=== PATIENT | female | born 1990 | race Caucasian/White ===

== ENCOUNTER 2019-02-21 15:00 | Outpatient (RCR) | payer OTHER, SELFPAY ==
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
--- NOTE | 2019-06-29 11:24 | HP.OT.NRP ---
HP - Discharge Summary - Patient Information MARQUISE ALBA was seen in my office for initial evaluation on 01/19/19. The following Plan of Care was established for this patient: Initial Frequency: 2-3x /Week Initial Duration: 4 Weeks Plan: cont with left shoulder end range of motion. cont with pain free right wrist PRE - Anticipated Interventions Anticipated Interventions: A/AAROM/PROM, Strengthening, Triggerpoint Release, Joint Protection/Energy Conservation, Ergonomic Education This patient was last seen in our office 02/21/19. Pertinent comments regarding their Occupational therapy will appear below: pt see for 8 OT visits- pt was progressing well and returning to her daily occupations- pt was last seen on 02/21/19 and has not schedule any further apts. due to time lapse in care pt d/c. At this point I will be discontinuing this patient from occupational therapy. I would be happy to see this patient again in the future if found appropriate by the physician. Thank you! Allyson Lombardo, OTR/L, CHT
== END 2019-02-21 19:00 | disposition home or self-care (01) ==
LOC: OT 15:00
PROVIDERS: Referring Provider Orthopaedic Surgery; Visit Provider Orthopaedic Surgery
DX: S40.012D Contusion of left shoulder, subsequent encounter (principal); S63.681D Other sprain of right thumb, subsequent encounter
CPT/HCPCS: 97035; 97110; 97166; 97530

== ENCOUNTER → 2019-04-04 17:37 | Outpatient (CLI) | payer OTHER, SELFPAY ==
[2019-04-10 08:49] LABS: HPV Reflexed? NOT INDICATED
== END ==
PROVIDERS: Referring Provider Obstetrics & Gynecology; Visit Provider Obstetrics & Gynecology
DX: Z12.4 Encounter for screening for malignant neoplasm of cervix (principal)
CPT/HCPCS: 87624; 88175; G0145

== ENCOUNTER 2021-11-03 16:56 | Outpatient (CLI) | payer OTHER, MEDICAID, SELFPAY ==
[2021-11-03 19:28] LABS: Estradiol 37.7 pg/mL; Prolactin 19.8 ng/mL; T4 Free Direct 1.13 ng/dL (0.76-1.46); Thyroid Stim Hormone (TSH) 3.46 uIU/mL (0.358-3.74)
[2021-11-10 13:19] LABS: HPV APTIMA, High Risk Negative (Negative)
== END 2021-11-03 23:59 | disposition home or self-care (01) ==
LOC: WOBLAB 16:58
PROVIDERS: Visit Provider Obstetrics & Gynecology
DX: Z12.4 Encounter for screening for malignant neoplasm of cervix (principal); R68.82 Decreased libido; E28.9 Ovarian dysfunction, unspecified
CPT/HCPCS: 36415; 82533; 82627; 82670; 84146; 84270; 84403; 84439; 84443; 87624; 88175; 82626; G0145

== ENCOUNTER 2021-12-08 09:42 | Outpatient (CLI) | payer OTHER, MEDICAID, SELFPAY | END 2021-12-08 23:59 | disposition home or self-care (01) | LOC: LABSPEC 09:47 | PROVIDERS: Visit Provider Student in an Organized Health Care Education/Training Program | DX: R30.0 Dysuria (principal); R31.9 Hematuria, unspecified | CPT/HCPCS: 87086; 87088 ==

== ENCOUNTER 2021-12-14 14:16 | Outpatient (CLI) | payer OTHER, MEDICAID, SELFPAY | END 2021-12-14 23:59 | disposition home or self-care (01) | LOC: LABSPEC 14:25 | PROVIDERS: Visit Provider Obstetrics & Gynecology | DX: R30.0 Dysuria (principal) | CPT/HCPCS: 87086 ==